=== PATIENT | male | born 1965 | race Hispanic/Latino ===

== ENCOUNTER 2018-07-12 17:25 | Inpatient (IN) | payer MEDICAID ==
[~2018-07-12] VITALS: Ht 172.7 cm; Wt 170.5 kg
[2018-07-12] MEDS ORDERED: IPRATROPIUM/ALBUTEROL SULFATE 3 ML SOLUTION IH ONE (18:14)
[2018-07-12 18:29] LABS: CREATININE 0.7 mg/dL (0.5-1.5); POTASSIUM 3.2 mmol/L (3.5-5.1)
[2018-07-12 18:31] LABS: INR 1.03 (0.85-1.15); PARTIAL THROMBOPLASTIN TIME 25.5 SEC (26.3-35.5); PROTHROMBIN TIME 10.8 SEC (9.6-11.6)
[2018-07-12 18:34] LABS: BASOPHILS % (AUTO) 0.1 % (0.0-5.0); EOSINOPHILS % (AUTO) 0.7 % (0.0-8.0); HEMATOCRIT 29.4 % (42-54); LYMPHOCYTES % (AUTO) 14.9 % (21.0-51.0); MEAN CORPUSCULAR VOLUME 124.3 fL (79-99); MONOCYTES % (AUTO) 35.8 % (3.0-13.0); NEUTROPHILS % (AUTO) 48.5 % (40.0-77.0); NUCLEATED RED BLOOD CELLS 0.1 % (0.0-0.19); PLATELET COUNT (AUTO) 90 K/uL (130-400); RED BLOOD CELL COUNT(AUTO) 2.36 MIL/uL (4.50-6.20); RED CELL DISTRIBUTION WIDTH 17.4 % (11.0-15.5)
[2018-07-12 18:44] LABS: ALBUMIN 3.1 g/dL (3.5-5.0); BILIRUBIN,TOTAL 0.5 mg/dL (0.2-1.0); TOTAL PROTEIN, SERUM 7.9 g/dL (6.0-8.3); TROPONIN I 0.05 ng/mL (0.00-0.06)
[2018-07-12] MEDS ORDERED: CEFTRIAXONE SODIUM 1 GM ONE (19:00)
[2018-07-12] MEDS ORDERED: SODIUM CHLORIDE 0.9% 1000ML 1,000 ML IV ONE (19:00)
[2018-07-12] MEDS ORDERED: SODIUM CHLORIDE 0.9% 50 ML IV ONE (19:01)
[2018-07-12] MEDS ORDERED: AZITHROMYCIN 500MG+NS 250ML 250 ML IV ONE (19:45)
[2018-07-12 20:47] LABS: BILIRUBIN,URINE Negative (NEGATIVE); COLOR,URINE Yellow (YELLOW); GLUCOSE, URINE (UA) TRACE mg/dL (NEGATIVE); KETONES,URINE Negative (NEGATIVE); LEUKOCYTE ESTERASE ,URINE Negative (NEGATIVE); NITRATE,URINE Negative (NEGATIVE); OCCULT BLOOD,URINE Negative (NEGATIVE); PH,URINE 6.5 (5.0-8.0); PROTEIN,URINE Negative (NEGATIVE)
[2018-07-12 20:54] LABS: APPEARANCE,URINE CLEAR (CLEAR)
[2018-07-12 21:01] LABS: RBC,URINE 0-1 /HPF (0-1); WBC,URINE 0-1 /HPF (0-1)
[2018-07-12 21:02] LABS: BACTERIA,URINE Rare /HPF (None Seen); SQUAMOUS EPITHELIAL CELL,UR Rare /HPF (0-2)
[2018-07-13] MEDS ORDERED: IPRATROPIUM/ALBUTEROL SULFATE 3 ML SOLUTION IH ONE ×2 (00:02→08:12)
[2018-07-13] MEDS ORDERED: METHYLPREDNISOLONE SOD SUCC 125MG/2ML VIAL ONE (00:51)
[2018-07-13 06:19] LABS: BASOPHILS % (AUTO) 0.3 % (0.0-5.0); EOSINOPHILS % (AUTO) 0.3 % (0.0-8.0); HEMATOCRIT 30.6 % (42-54); LYMPHOCYTES % (AUTO) 12.3 % (21.0-51.0); MEAN CORPUSCULAR HEMOGLOBIN 41.6 pg (27.0-33.0); MEAN CORPUSCULAR HGB CONC 33.1 g/dL (32.0-36.0); MEAN CORPUSCULAR VOLUME 125.5 fL (79-99); MONOCYTES % (AUTO) 34.7 % (3.0-13.0); NEUTROPHILS % (AUTO) 52.4 % (40.0-77.0); NUCLEATED RED BLOOD CELLS 0.2 % (0.0-0.19); PLATELET COUNT (AUTO) 115 K/uL (130-400); RED BLOOD CELL COUNT(AUTO) 2.43 MIL/uL (4.50-6.20); RED CELL DISTRIBUTION WIDTH 17.9 % (11.0-15.5); WHITE BLOOD COUNT (AUTO) 10.9 K/uL (4.8-10.8)
[2018-07-13 06:28] LABS: CREATININE 0.9 mg/dL (0.5-1.5); POTASSIUM 4.4 mmol/L (3.5-5.1)
[2018-07-13 06:33] LABS: ALBUMIN 3.5 g/dL (3.5-5.0); BILIRUBIN,TOTAL 0.8 mg/dL (0.2-1.0); TOTAL PROTEIN, SERUM 8.2 g/dL (6.0-8.3)
[2018-07-13 10:28] LABS: ABG BASE EXCESS 4.7 mmol/L (-2.0-3.0); ABG HCO3 33.3 mmol/L (21.0-28.0); ABG OXYGEN SATURATION 92.6 % (95.0-99.0); ABG PCO2 74 mmHg (35-48)
[2018-07-13] MEDS ORDERED: METHYLPREDNISOLONE SOD SUCC 40MG/ML 1ML ONE (13:25)
[2018-07-13] MEDS: METHYLPREDNISOLONE SOD SUCC 125MG/2ML VIAL IVP SCH ×2 (14:00→23:09)
[2018-07-13] MEDS: IPRATROPIUM/ALBUTEROL SULFATE 3 ML SOLUTION IH SCH ×3 (14:26→21:56)
[2018-07-13 14:30] VITALS: BP 167/85
[2018-07-13] MEDS ORDERED: HYDR-2132 PO (14:54)
[2018-07-13] MEDS ORDERED: TYLENOL PO (14:54)
[2018-07-13] MEDS: INSULIN HUMULIN R 100 UNIT/ML 3ML SQ SCH ×2 (15:14→21:00)
[2018-07-13 16:00] VITALS: BP 176/102
[2018-07-13] MEDS ORDERED: CEFTRIAXONE SODIUM 1 GM IVP SCH (17:00)
[2018-07-13] MEDS ORDERED: CLONIDINE HCL 0.1 MG TABLET PO PRN (17:30)
[2018-07-13] MEDS ORDERED: CLONIDINE HCL 0.1 MG TABLET ONE (17:44)
[2018-07-13] MEDS ORDERED: AZITHROMYCIN 500MG+NS 250ML 250 ML IV SCH (18:00)
[2018-07-13 20:00] VITALS: BP 141/86
[2018-07-13 20:21] LABS: ABG BASE EXCESS 2.8 mmol/L (-2.0-3.0); ABG HCO3 32.5 mmol/L (21.0-28.0); ABG OXYGEN SATURATION 96.5 % (95.0-99.0); ABG PCO2 74 mmHg (35-48)
--- NOTE | 2018-07-13 20:28 | NUR ---
MD Dr CEBALLOS came and saw pt.He ordered stat abg.
--- NOTE | 2018-07-13 20:30 | NUR ---
PAGED Paged Dr chery thru answering service.
--- NOTE | 2018-07-13 20:34 | NUR ---
MD CALL BACK Dr chery CALLED back informed of abg results,he said to call pulmonology.
--- NOTE | 2018-07-13 20:36 | NUR ---
AREA MANAGER Paged assorter it operations specialist magda vela.
--- NOTE | 2018-07-13 20:41 | NUR ---
HERVE vela np called back,updated on pts status,abg results.new orders received.
[2018-07-13] MEDS: CEFTRIAXONE SODIUM 1 GM IVP SCH (20:57)
[2018-07-13] MEDS: AZITHROMYCIN 500MG+NS 250ML 250 ML IV SCH (20:58)
[2018-07-13] MEDS ORDERED: METHYLPREDNISOLONE SOD SUCC 125MG/2ML VIAL IVP SCH (21:00)
[2018-07-14] VITALS (7 sets, daily range): BP systolic 121–161; BP diastolic 61–95
[2018-07-14 00:13] LABS: ABG BASE EXCESS 5.6 mmol/L (-2.0-3.0); ABG HCO3 35.3 mmol/L (21.0-28.0); ABG OXYGEN SATURATION 94.1 % (95.0-99.0); ABG PCO2 76 mmHg (35-48)
--- NOTE | 2018-07-14 00:15 | NUR ---
STATUS ABg done again,pt more arousable,tolerating bipap.
[2018-07-14] MEDS: IPRATROPIUM/ALBUTEROL SULFATE 3 ML SOLUTION IH SCH ×6 (01:31→21:20)
--- NOTE | 2018-07-14 04:20 | NUR ---
AWAKE Pt is awake now,wants coffee,abg to be done per Rt.
[2018-07-14 04:30] LABS: ABG BASE EXCESS 3.2 mmol/L (-2.0-3.0); ABG HCO3 30.2 mmol/L (21.0-28.0); ABG OXYGEN SATURATION 97.5 % (95.0-99.0); ABG PCO2 55 mmHg (35-48)
[2018-07-14] MEDS: INSULIN HUMULIN R 100 UNIT/ML 3ML SQ SCH ×4 (05:58→20:49)
[2018-07-14 05:59] LABS: HEMATOCRIT 27.7 % (42-54); LYMPHOCYTES % (AUTO) 16.8 % (21.0-51.0); MEAN CORPUSCULAR HEMOGLOBIN 41.2 pg (27.0-33.0); MEAN CORPUSCULAR HGB CONC 33.1 g/dL (32.0-36.0); MEAN CORPUSCULAR VOLUME 124.7 fL (79-99); MONOCYTES % (AUTO) 11.8 % (3.0-13.0); NEUTROPHILS % (AUTO) 71.4 % (40.0-77.0); NUCLEATED RED BLOOD CELLS 0.7 % (0.0-0.19); PLATELET COUNT (AUTO) 85 K/uL (130-400); RED BLOOD CELL COUNT(AUTO) 2.22 MIL/uL (4.50-6.20); RED CELL DISTRIBUTION WIDTH 17.4 % (11.0-15.5); WHITE BLOOD COUNT (AUTO) 3.6 K/uL (4.8-10.8)
[2018-07-14] MEDS: METHYLPREDNISOLONE SOD SUCC 125MG/2ML VIAL IVP SCH ×2 (06:06→13:28)
[2018-07-14 06:21] LABS: BILIRUBIN,TOTAL 0.5 mg/dL (0.2-1.0); CREATININE 0.8 mg/dL (0.5-1.5); TOTAL PROTEIN, SERUM 7.9 g/dL (6.0-8.3)
[2018-07-14] MEDS ORDERED: CHLORDIAZEPOXIDE HCL 25 MG CAP ONE (08:39)
[2018-07-14] MEDS: CHLORDIAZEPOXIDE HCL 25 MG CAP PO SCH ×3 (12:56→23:30)
[2018-07-14] MEDS: METHYLPREDNISOLONE SOD SUCC 40MG/ML 1ML IVP SCH ×2 (14:00→23:29)
--- NOTE | 2018-07-14 17:00 | NUR ---
CHERELLE MET W PT ALONE, AAOX3 ,ENG SPEAKING, ON O2, BIAPA AT BEDSIDE, STATES HIS MACHINE WENT MISSING, SLEEP STUDY MORE THAN 5 YEARS AGO AT ; CONSENT TO OBTAIN RECORD SIGNED, WILL F/UP IN AM. LIVES WITH NIECE, WILL PROVIDE TRANSPORT NO OTHER DME NEEDED, WILL EVAL FOR HOME OXYGEN AT DISCHARGE Addendum: 07/15/18 at 0822 by GIULIANO ARIZMENDI RN CM Amended: Links added.
[2018-07-14] MEDS: AZITHROMYCIN 500MG+NS 250ML 250 ML IV SCH (20:48)
[2018-07-14] MEDS: CEFTRIAXONE SODIUM 1 GM IVP SCH (20:48)
[2018-07-15] VITALS (8 sets, daily range): BP systolic 115–177; BP diastolic 59–90
[2018-07-15] MEDS: IPRATROPIUM/ALBUTEROL SULFATE 3 ML SOLUTION IH SCH ×6 (00:21→22:00)
[2018-07-15 04:19] LABS: ABG BASE EXCESS 1.7 mmol/L (-2.0-3.0); ABG HCO3 27.8 mmol/L (21.0-28.0); ABG OXYGEN SATURATION 96.4 % (95.0-99.0); ABG PCO2 49 mmHg (35-48)
[2018-07-15 05:25] LABS: HEMATOCRIT 28.6 % (42-54); MEAN CORPUSCULAR HEMOGLOBIN 41.9 pg (27.0-33.0); MEAN CORPUSCULAR HGB CONC 34.1 g/dL (32.0-36.0); MEAN CORPUSCULAR VOLUME 122.9 fL (79-99); NUCLEATED RED BLOOD CELLS 0.8 % (0.0-0.19); PLATELET COUNT (AUTO) 97 K/uL (130-400); RED BLOOD CELL COUNT(AUTO) 2.32 MIL/uL (4.50-6.20); RED CELL DISTRIBUTION WIDTH 16.7 % (11.0-15.5); WHITE BLOOD COUNT (AUTO) 4.8 K/uL (4.8-10.8)
[2018-07-15 05:46] LABS: ALBUMIN 3.1 g/dL (3.5-5.0); BILIRUBIN,TOTAL 0.4 mg/dL (0.2-1.0); CREATININE 0.9 mg/dL (0.5-1.5); POTASSIUM 3.9 mmol/L (3.5-5.1); TOTAL PROTEIN, SERUM 7.7 g/dL (6.0-8.3)
[2018-07-15] MEDS: INSULIN HUMULIN R 100 UNIT/ML 3ML SQ SCH ×4 (06:09→22:36)
[2018-07-15] MEDS: METHYLPREDNISOLONE SOD SUCC 40MG/ML 1ML IVP SCH ×2 (07:09→22:41)
[2018-07-15] MEDS: PANTOPRAZOLE SODIUM 40 MG TABLET.DR PO SCH (07:09)
[2018-07-15] MEDS: CHLORDIAZEPOXIDE HCL 25 MG CAP PO SCH ×4 (07:09→23:58)
[2018-07-15] MEDS: ENOXAPARIN SODIUM 40 MG/0.4 ML SYRINGE SQ SCH (10:32)
--- NOTE | 2018-07-15 11:08 | NUR ---
DYSPHAGIA EVAL COMPLETE. -S/S OF ASPIRATION. RECOMMEND REGULAR, THIN LIQUID DIET; PILLS WHOLE WITH LIQUIDS. PATIENT INFORMATION: Pt IS A 53 Y.O. MALE REFERRED FOR A BEDSIDE DYSPHAGIA EVALUATION SECONDARY TO PNEUMONIA DIAGNOSIS. Pt AAOX3 AND SERVED THE PRIMARY INFORMANT FOR MEDICAL AND SOCIAL HISTORY. Pt CURRENTLY ADMITTED SECONDARY TO COPD AND PNEUMONIA. Pt HAS A PAST MEDICAL HISTORY SIGNIFICANT FOR DMII, HYPERTENSION, DYSLIPIDEMIA, HIV, CHOLECYSTECTOMY, APPENDECTOMY, AND GERD. EVALUATION: SWALLOW FUNCTION AND EFFICIENCY WITHIN FUNCTIONAL LIMITS. ORAL MOTOR STRENGTH, COORDINATION, AND ROM WITHIN FUNCTIONAL LIMITS. LARYNGEAL ELEVATION/EXCURSION STRONG WITH TIMELY PHARYNGEAL RESPONSE. NO OVERT SIGNS OR SYMPTOMS OF ASPIRATION PRESENT AT BEDSIDE. VOCAL QUALITY CLEAR WITH NO THROAT CLEAR OR COUGH RESPONSE PRESENT. RECOMMENDATIONS: 1. REGULAR TEXTURE, THIN LIQUID DIET; PILLS WHOLE WITH LIQUIDS. 2. COMPENSATORY STRATEGIES (PROPHYLAXIS): *SEATED AT 90 DEGREE ANGLE *REMAIN UPRIGHT 30 MINUTES AFTER MEAL TIMES G-CODES SWALLOWING: [id number] Addendum: 07/15/18 at 1111 by BELINDA SANCHEZ [facility] Amended: Links added.
--- NOTE | 2018-07-15 13:32 | NUR ---
ORDERS TO RESUME HIV MEDS "please reconcile his HAART medication for HIV he has them in a bill box so, that we can resume". PT INSTRUCTED TO HAVE FAMILY TO BRING HOME MEDS TO DOCUMENT NAME OF MED, DOSE, FREQUENCY, ETC PT VERBALIZED UNDERSTANDING REPORTING FAMILY WILL BRING.
--- NOTE | 2018-07-15 15:38 | NUR ---
CHERELLE DC PLANNING UPDATE CALLED TO ROOM BY GERALDINE. HE STATES THAT HIS SLEEP STUDY WAS IN 2013 IN AUGUST.. SO MAY NO BE ELIGIBLE FOR A NOTHER CPAP MACHINE. PATIENT WANTS TO LEAVE TODAY CALL TO [facility]ORD[facility]. ORDER TO VERIFY ELIGIBILITY WITH INSURANCE. NOT CLEARED FOR DISCHARGE BY PULMONARY CALL TO INSURANCE
--- NOTE | 2018-07-15 15:56 | NUR ---
CHERELLE LONG CALL TO INSURANCE TO TRY TO GET A NEW CPAP AUTHORIZED. HIS LAST ONE WAS LESS THAN 5 YEARS AGO..INSURANCE WILL SEND PRE-AUTH FORM AND WE WILL TRY TO GET A REPLACEMENT
[2018-07-15] MEDS: CEFTRIAXONE SODIUM 1 GM IVP SCH (22:35)
[2018-07-15] MEDS: AZITHROMYCIN 500MG+NS 250ML 250 ML IV SCH (22:41)
[2018-07-16] MEDS: IPRATROPIUM/ALBUTEROL SULFATE 3 ML SOLUTION IH SCH ×3 (01:41→10:03)
[2018-07-16 03:56] VITALS: BP 151/73
[2018-07-16 05:39] LABS: HEMATOCRIT 28.8 % (42-54); MEAN CORPUSCULAR HEMOGLOBIN 41.7 pg (27.0-33.0); MEAN CORPUSCULAR HGB CONC 33.8 g/dL (32.0-36.0); MEAN CORPUSCULAR VOLUME 123.3 fL (79-99); NUCLEATED RED BLOOD CELLS 0.9 % (0.0-0.19); PLATELET COUNT (AUTO) 112 K/uL (130-400); RED BLOOD CELL COUNT(AUTO) 2.34 MIL/uL (4.50-6.20); RED CELL DISTRIBUTION WIDTH 17.2 % (11.0-15.5); WHITE BLOOD COUNT (AUTO) 3.9 K/uL (4.8-10.8)
[2018-07-16 05:55] LABS: CREATININE 0.8 mg/dL (0.5-1.5); POTASSIUM 3.9 mmol/L (3.5-5.1)
[2018-07-16] MEDS: INSULIN HUMULIN R 100 UNIT/ML 3ML SQ SCH (06:01)
[2018-07-16] MEDS: CHLORDIAZEPOXIDE HCL 25 MG CAP PO SCH (06:30)
[2018-07-16 07:16] LABS: ABG BASE EXCESS 5.3 mmol/L (-2.0-3.0); ABG HCO3 30.9 mmol/L (21.0-28.0); ABG OXYGEN SATURATION 92.4 % (95.0-99.0); ABG PCO2 49 mmHg (35-48)
[2018-07-16 08:00] VITALS: BP 134/62
--- NOTE | 2018-07-16 08:00 | NUR ---
AM ASSESSMENT. SITTING IN CHAIR, NO C/O.
[2018-07-16] MEDS: PANTOPRAZOLE SODIUM 40 MG TABLET.DR PO SCH (08:45)
[2018-07-16] MEDS: METHYLPREDNISOLONE SOD SUCC 40MG/ML 1ML IVP SCH (08:45)
[2018-07-16] MEDS: ENOXAPARIN SODIUM 40 MG/0.4 ML SYRINGE SQ SCH (08:46)
--- NOTE | 2018-07-16 11:01 | NUR ---
STATES HE IS LEAVING WITH OR WITHOUT DR. CEBALLOS'S BLESSINGS. APPARENTLY WAS TOLD YESTERDAY HE WAS GOING TO BE DISCHARGED TODAY.HAS REMOVED HIS TELE-MONITOR, ASKING TO HAVE SALINE LOCK TAKEN OUT. DR. BAEZA ROUNDED EARLIER AND FROM HIS STANDPOINT OK TO DC.
--- NOTE | 2018-07-16 11:20 | NUR ---
DR. CEBALLOS NOTIFIED OF AMA VIA TEXT BY CHARGE NURSE.
[2018-07-16] MEDS ORDERED: PREDNISONE 20 MG TABLET PO SCH (21:00)
== END 2018-07-16 11:43 | disposition left against medical advice (07) | DRG 133 ==
LOC: EDH 17:25 → OBSVTOIN 17:26 → EDHIP 17:26 → 3AH 07-13 14:15
PROVIDERS: ADMIT Internal Medicine; ATTEND Internal Medicine
PROC: 5A09357 Assistance with Respiratory Ventilation, Less than 24 Consecutive Hours, Continuous Positive Airway Pressure (ICD-10-PCS; principal; 2018-07-13)
PROC: 5A09357 Assistance with Respiratory Ventilation, Less than 24 Consecutive Hours, Continuous Positive Airway Pressure (ICD-10-PCS; 2018-07-14)
DX: J96.21 Acute and chronic respiratory failure with hypoxia (principal); J18.1 Lobar pneumonia, unspecified organism; E87.2 Acidosis; E66.2 Morbid (severe) obesity with alveolar hypoventilation; J44.0 Chronic obstructive pulmonary disease with (acute) lower respiratory infection; Z68.43 Body mass index [BMI] 50.0-59.9, adult; E11.9 Type 2 diabetes mellitus without complications; D64.9 Anemia, unspecified; K76.0 Fatty (change of) liver, not elsewhere classified; E78.5 Hyperlipidemia, unspecified; J96.22 Acute and chronic respiratory failure with hypercapnia; I10 Essential (primary) hypertension; J98.11 Atelectasis; Z90.49 Acquired absence of other specified parts of digestive tract; Z87.891 Personal history of nicotine dependence; Z91.19 Patient's noncompliance with other medical treatment and regimen; Z79.899 Other long term (current) drug therapy; Z21 Asymptomatic human immunodeficiency virus [HIV] infection status
CPT/HCPCS: 36415; 36600; 71045; 71250; 80048; 80053; 81001; 82435; 82550; 82803; 82947; 82948; 83605; 83874; 84132; 84295; 84484; 85018; 85025; 85027; 85060; 85610; 85730; 86359; 86360; 86361; 86701; 87040; 87088; 87390; 87804; 92610; 93005; 93306; 94640; 94660; 94664; 96365; 96366; 96375; 96376; A4218; G0378; J0456; J0696; J1650; J1815; J2920; J2930; J7030

== ENCOUNTER → 2018-08-23 | Outpatient (CLI) | payer MEDICAID ==
[~2018-08-23] MED LIST: HYDR-2132 PO; TYLENOL PO
== END | disposition home or self-care (01) ==
LOC: RAH 10:01
PROVIDERS: ATTEND Family Medicine
DX: I51.7 Cardiomegaly (principal)
CPT/HCPCS: 71046; 93306